=== PATIENT | male | born 1965 | race Asian ===

== ENCOUNTER 2017-03-10 23:15 | Emergency (ER) | payer BC, OTHER ==
[~2017-03-10] VITALS: Ht 167.6 cm; Wt 81.3 kg
[~2017-03-10 23:15] MED LIST: AMOX250C17 PO; BENA5TAB2 PO; LEVO25TA4 PO; PRAV10TA2 PO; TRAZ100T15 PO
[2017-03-10 23:53] LABS: BASOPHILS # (AUTO) 0.03 x10^3/uL (0-0.1); BASOPHILS % (AUTO) 0 % (0-1); EOSINOPHILS # (AUTO) 0.11 x10^3/uL (0-0.4); EOSINOPHILS % (AUTO) 1 % (1-7); LYMPHOCYTES # (AUTO) 2.49 x10^3/uL (1-3.4); LYMPHOCYTES % (AUTO) 31 % (22-44); MD NO; MEAN CORPUSCULAR HEMOGLOBIN 29.3 pg (27.5-34.5); MEAN CORPUSCULAR HGB CONC 34.1 g/dL (33.2-36.2); MEAN CORPUSCULAR VOLUME 85.9 fL (81-97); MEAN PLATELET VOLUME 7.2 fL (7.4-10.4); MONOCYTES # (AUTO) 0.63 x10^3/uL (0.2-0.8); MONOCYTES % (AUTO) 8 % (2-9); NEUTROPHILS # (AUTO) 4.81 x10^3/uL (1.8-6.8); NEUTROPHILS % (AUTO) 60 % (42-75); PLATELET COUNT 324 x10^3/uL (130-400); RED BLOOD COUNT 5.58 x10^6/uL (4.38-5.82); RED CELL DISTRIBUTION WIDTH 13.2 % (9.4-14.8)
[2017-03-10] MEDS ORDERED: ZOLP10TA5 PO (23:57)
[2017-03-10] MEDS ORDERED: PARO40TA3 PO (23:57)
[2017-03-10] MEDS ORDERED: HYDR25TA6 PO (23:57)
[2017-03-11] MEDS ORDERED: SODIUM CHLORIDE FLUSH 10ML SYR IVF ONE
[2017-03-11 00:05] LABS: ALBUMIN 4.1 g/dL (3.4-5.0); ANION GAP 6 mmol/L (5-15); CALCIUM 9.1 mg/dL (8.5-10.1); CHLORIDE 103 mmol/L (98-107); CREATININE 1.13 mg/dL (0.7-1.3)
[2017-03-11 00:09] LABS: TROPONIN I < 0.015 ng/mL (0.000-0.045)
[2017-03-11 00:32] VITALS: BP 155/95
[2017-03-11] MEDS ORDERED: POTASSIUM CHLORIDE 20 MEQ TAB.ER.PRT ONE (00:36)
[2017-03-11] MEDS ORDERED: POTASSIUM CHLORIDE 20 MEQ TAB.ER.PRT PO ONE (01:00)
== END 2017-03-11 01:24 | disposition home or self-care (01) ==
LOC: ED 03-11 00:23
DX: I10 Essential (primary) hypertension (principal); E87.6 Hypokalemia; R00.2 Palpitations
CPT/HCPCS: 36415; 71045; 80048; 82040; 84484; 85025; 93005; 99285